=== PATIENT | male | born 1960 | race Caucasian/White ===

== ENCOUNTER 2018-04-02 01:28 | Emergency (ER) | payer MEDICAID ==
[~2018-04-02] VITALS: Ht 177.8 cm; Wt 77.3 kg
[~2018-04-02 01:28] MED LIST: OLAN10TA3 PO; TRAZ150 PO
[2018-04-02 02:47] LABS: BASOPHILS % (AUTO) 0.1 % (0.0-2.0); EOSINOPHILS % (AUTO) 8.1 % (1.0-6.0); HEMATOCRIT 37.6 % (41-53); HEMOGLOBIN 12.8 g/dL (13.5-17.5); LYMPHOCYTES # (AUTO) 1.8 K/uL (1.0-4.8); MEAN CORPUSCULAR HEMOGLOBIN 32.5 pg (26.0-34.0); MEAN CORPUSCULAR HGB CONC 34.1 G/dL (31.0-37.0); MEAN CORPUSCULAR VOLUME 95 fL (80-100); MONOCYTES # (AUTO) 0.5 K/uL (0.1-1.0); NEUTROPHILS # (AUTO) 3.8 K/uL (1.8-7.7); NEUTROPHILS % (AUTO) 56.8 % (40.0-70.0); PLATELET COUNT (AUTO) 220 K/uL (150-450); RED BLOOD CELL COUNT(AUTO) 3.94 MIL/uL (4.50-5.90); RED CELL DISTRIBUTION WIDTH 12.6 % (11.5-14.5)
[2018-04-02 02:54] LABS: ANION GAP 5 mmol/L (8-16); CALCIUM, TOTAL 8.6 mg/dL (8.8-10.5); CARBON DIOXIDE 29 mmol/L (22-29); CHLORIDE 103 mmol/L (98-107); CREATININE 0.78 mg/dL (0.60-1.30); GLOMERULAR FILTR. RATE CALC > 60 mL/min (>60); GLUCOSE,RANDOM 93 mg/dL (70-110); POTASSIUM 3.7 mmol/L (3.5-5.1); SODIUM SERUM 137 mmol/L (136-145); UREA NITROGEN, BLOOD 13 mg/dL (7-18)
[2018-04-02 02:59] LABS: ALANINE AMINOTRANSFERASE 35 U/L (12-78); ALBUMIN 3.3 g/dL (3.4-5.0); ALKALINE PHOSPHATASE 77 U/L (46-116); ASPARTATE AMINOTRANSFERASE 31 U/L (15-37); TOTAL PROTEIN, SERUM 6.4 g/dL (6.4-8.2)
[2018-04-02] MEDS ORDERED: LORazepam 2 MG TABLET PO ONE (03:15)
[2018-04-02] MEDS ORDERED: OLANZapine 5 MG TABLET PO ONE (03:15)
[2018-04-02 03:34] LABS: BILIRUBIN,TOTAL 0.1 mg/dL (0.1-1.0)
[2018-04-02 05:01] VITALS: BP 129/70
== END 2018-04-02 05:26 | disposition home or self-care (01) ==
LOC: EMS 01:28
DX: F20.9 Schizophrenia, unspecified (principal); F10.10 Alcohol abuse, uncomplicated; R53.1 Weakness; M54.5 Low back pain; G89.29 Other chronic pain; J44.9 Chronic obstructive pulmonary disease, unspecified; F19.10 Other psychoactive substance abuse, uncomplicated; F41.9 Anxiety disorder, unspecified; F31.9 Bipolar disorder, unspecified; F17.210 Nicotine dependence, cigarettes, uncomplicated; F15.90 Other stimulant use, unspecified, uncomplicated; F11.90 Opioid use, unspecified, uncomplicated; Z79.899 Other long term (current) drug therapy; Z86.19 Personal history of other infectious and parasitic diseases; Z59.0 Homelessness; Y90.0 Blood alcohol level of less than 20 mg/100 ml
CPT/HCPCS: 36415; 80053; 85025; 99284; 99406; G0480

== ENCOUNTER 2018-04-03 21:26 | Emergency (ER) | payer MEDICAID ==
[~2018-04-03] VITALS: Ht 180.3 cm; Wt 77.3 kg
[2018-04-03] MEDS ORDERED: OLANZapine 5 MG TABLET PO ONE (22:15)
[2018-04-03] MEDS ORDERED: LORazepam 2 MG TABLET PO ONE (22:15)
[2018-04-03 23:02] VITALS: BP 142/88
== END 2018-04-03 23:05 | disposition home or self-care (01) ==
LOC: EMS 21:27
DX: R44.0 Auditory hallucinations (principal); F15.10 Other stimulant abuse, uncomplicated; F17.210 Nicotine dependence, cigarettes, uncomplicated; F41.9 Anxiety disorder, unspecified; F31.9 Bipolar disorder, unspecified; J44.9 Chronic obstructive pulmonary disease, unspecified; G89.29 Other chronic pain; F15.90 Other stimulant use, unspecified, uncomplicated; F13.90 Sedative, hypnotic, or anxiolytic use, unspecified, uncomplicated; F11.90 Opioid use, unspecified, uncomplicated; F19.90 Other psychoactive substance use, unspecified, uncomplicated
CPT/HCPCS: 99406

== ENCOUNTER 2018-08-24 18:26 | Emergency (ER) | payer MEDICAID | END 2018-08-24 18:45 | disposition left against medical advice (07) | LOC: EMS 18:28 | DX: R05 Cough (principal); Z53.21 Procedure and treatment not carried out due to patient leaving prior to being seen by health care provider ==

== ENCOUNTER 2019-06-03 23:41 | Emergency (ER) | payer MEDICAID ==
[~2019-06-03] VITALS: Ht 180.3 cm; Wt 79.5 kg
[2019-06-03] MEDS ORDERED: BUPR-93 PO (23:47)
[2019-06-04] MEDS ORDERED: BACITRACIN 0.9 GM PACKET OINTMENT TP ONE (00:45)
[2019-06-04 01:30] VITALS: BP 143/80
[2019-06-04] MEDS ORDERED: ACETAMINOPHEN 500 MG TABLET PO ONE (01:30)
== END 2019-06-04 01:40 | disposition home or self-care (01) ==
LOC: EMS 23:41
DX: M79.671 Pain in right foot (principal); M79.672 Pain in left foot; F15.10 Other stimulant abuse, uncomplicated; F41.9 Anxiety disorder, unspecified; F31.9 Bipolar disorder, unspecified; F20.9 Schizophrenia, unspecified; J44.9 Chronic obstructive pulmonary disease, unspecified; F17.210 Nicotine dependence, cigarettes, uncomplicated; F11.90 Opioid use, unspecified, uncomplicated; G89.29 Other chronic pain; Z59.0 Homelessness